=== PATIENT | female | born 2000 | race Caucasian/White ===

== ENCOUNTER → 2023-07-14 | Outpatient (CLI) | payer OTHER ==
[~2023-07-14] MED LIST: PROHANCE 279.3MG/ML 5ML VIAL ONE
== END ==
LOC: M PLAIMG 08:45
PROVIDERS: ATTEND Physician Assistant
DX: E22.1 Hyperprolactinemia (principal); R73.09 Other abnormal glucose
CPT/HCPCS: 70553; A9576

== ENCOUNTER 2023-08-18 00:16 | Emergency (ER) | payer OTHER ==
[~2023-08-18] VITALS: Ht 170.2 cm; Wt 97.2 kg
[2023-08-18 00:17] VITALS: BP 127/88; TEMP 97.8; O2SAT 99
[2023-08-18] MEDS ORDERED: diphenhydrAMINE 50MG CAP PO ONE (00:55)
== END 2023-08-18 03:26 | disposition left against medical advice (07) ==
LOC: M ED 00:16
DX: Z53.21 Procedure and treatment not carried out due to patient leaving prior to being seen by health care provider (principal)

== ENCOUNTER 2025-01-31 06:21 | Emergency (ER) | payer OTHER ==
[~2025-01-31] VITALS: Ht 167.6 cm; Wt 94.0 kg
[2025-01-31] MEDS: CETIRIZINE 10 MG TAB PO ONE (07:19)
[2025-01-31 08:10] VITALS: BP 104/65; TEMP 97.1; O2SAT 99
== END 2025-01-31 08:12 | disposition home or self-care (01) ==
LOC: M ED 06:21
DX: H01.111 Allergic dermatitis of right upper eyelid (principal); H01.114 Allergic dermatitis of left upper eyelid